=== PATIENT | female | born 1985 | race African-American/Black ===

== ENCOUNTER 2019-04-08 12:59 | Emergency (ER) | payer MEDICAID ==
[~2019-04-08] VITALS: Ht 170.2 cm; Wt 91.0 kg
[2019-04-08 13:05] VITALS: BP 150/80
== END 2019-04-08 14:54 | disposition left against medical advice (07) ==
LOC: ER 12:59
DX: Z53.21 Procedure and treatment not carried out due to patient leaving prior to being seen by health care provider (principal)